=== PATIENT | female | born 1950 ===

== ENCOUNTER 2020-08-29 06:00 | Day surgery (SDC) | payer OTHER ==
[~2020-08-29 06:00] MED LIST: COZAAR50 MG PO; METFORMIN HCL500 M3 PO
== END 2020-08-29 13:20 | disposition home or self-care (01) ==
LOC: CIR.AMB 06:00
PROVIDERS: ATTEND Orthopaedic Surgery
DX: M75.121 Complete rotator cuff tear or rupture of right shoulder, not specified as traumatic (principal); M75.21 Bicipital tendinitis, right shoulder; Z20.822 Contact with and (suspected) exposure to COVID-19